=== PATIENT | male | born 1970 | race Caucasian/White ===

== ENCOUNTER 2020-12-07 16:00 | Outpatient (RCR) | payer OTHER, SELFPAY ==
--- NOTE | 2020-08-18 09:01 | HP.PTEVAL_ITS ---
Patient's Visit Information MARQUEZ ZELAYA is a 50 year old M referred to Physical Therapy by JOSE Berger with a diagnosis of RTC strain, adhesive capsulitis. Date of Evaluation: 08/18/20 Physical Therapist: Vinicio Hunt DPT - Visit Plan Frequency: 1-2x /Week Duration: 6 Weeks Plan: Start with joint mobs of GH with movement. Add in static stretching for HEP. Progress as tolerated. - Subjective Pt. is here today for his initial evaluation with diagnosis of L shoulder RTC sprain, adhesive capsulitis. Pain for ~1 month, no mech of injury. Pain with raising L arm out to side, and pushing off. Pt. did have a recent injection with reducing tin symptoms (severity). Pt. has difficulty with pushing off, raising his arm, lifting. Sleeping- painful with lying on L side. No N/T. Xrays negative for fracture. Pt. is hopeful to get back to playing soccer and ice hockey. 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 - Pain L shoulder Pain Intensity (Out of 10): 2 Pain Intensity Range: 2 - Objective POSTURE: pt. has slight FH posture and slight forward shoulder, bilaterally. + shrug signs. PALPATION: Pt. has tenderness at proximal biceps tendon, no soreness throughout RTC insertions. NEURO: Pt. has normal sensation and normal DTR of biceps and DTR of B UEs. ROM: R shoulder- full without increase in symptoms. L shoulder- flexion 125deg, abd 90deg., functional ER C1 very aberrant motion, functional IR L iliac crest. Painful and stiff with all motions. AROM: slightly better than all previous motions, but very tight with ER/IR motions. MMT: Pt. has 4+/5 strength throughout BUEs, increase in symptoms with speeds testing and weakness noted 3/5 (secondary to increased pain). SPECIAL TESTING: + hornblowers test, - Special Tests L Shoulder Biceps Load Test - Labrum: Positive L Shoulder Speeds Test - Labrum/Biceps: Positive L Shoulder Shrug Sign - OA/Adhesive Capsulitis: Positive - Goals Goal 1:: LTG: Pt to be I with HEP. Goal Time Frame: 4-6 Weeks Goal 2:: STG: pt. to have increased PROM by 25% in all directions. Goal Time Frame: 2-4 Weeks Goal 3:: LTG: Pt. to have increased AROM of L shoulder by 25% in all directions. Goal Time Frame: 4-6 Weeks Goal 4:: STG: Pt. to sleep throughout the night without increase in symptoms. Goal Time Frame: 2-4 Weeks Goal 5:: LTG: Pt. to resume playing soccer and recreational activities withotu increase in symptoms. Goal Time Frame: 4-6 Weeks - Rehabilitation Potential Physical Therapy Diagnosis: Pt. has signs and symptoms consistent with abhesive calsulitis. The special testing I did also suggested long head of biceps issues which may be the underlying issue. I will work on ROM, stretching in order to progress his ROM. Rehabilitation Potential: Good - Anticipated Interventions Patient/Client Instruction: Educate patient on: Condition, Plan of Care, Risk Factors, Benefits of Fitness Program For the Purpose of:: To improve decision making, To facilitate caregiver knowledge, To improve self management, To prevent re-injury, To improve ability to perform tasks related to life management, To improve tolerance to ADL's Therapeutic Exercise to Include: Strength training, Power training, Body mechanics, Postural training, Flexibilty training, Passive ROM, Active ROM, Scap ular Strength/Stabilization For the Purpose of:: To decrease pain, To decrease swelling/inflammation, To increase ROM, To improve nutrient delivery to tissue, To increase oxygenation perfusion, To improve muscle performance and motor function, To improve ability to perform ADL's Manual Therapy Techniques to Include: Mobilization, Passive ROM, Soft tissue mobilization For the Purpose of:: To decrease pain, To decrease swelling/inflammation, To increase ROM, To improve nutrient delivery to tissue, To increase oxygenation perfusion, To improve muscle performance and motor function Thank you for the opportunity to evaluate your patient. For Medicare and Medicare HMO plans, please review the plan of care and approve it. It will need to be FAXED BACK to us at [phone] for Medicare purposes. For Medicare only, by signing this I certify the plan of care. Please let me know if there are questions or concerns regarding this plan of care. Physician Signature: Date:
--- NOTE | 2020-10-02 09:50 | HP.PTREVAL ---
JOSE Berger, It has been my pleasure to treat MARQUEZ ZELAYA over the last 7 visits for RTC strain, adhesive capsulitis. Please see the progress note below for an update on the physical therapy plan of care! Subjective: Pt. reports overall he is doing better. He is still having some difficulty with reaching overhead and with behind his head and behind his back, but has improved since initial evaluation. Pt. reports no pain at rest today, but has 1-2/10 pain with attempts to reach behind his back and end range over his head. Objective/Function: ROM: L shoulder- AROM- flexion 150deg, abd 145deg, functional ER C 4 aberrant motion, functional IR L5. PROM- flexion 160deg, abd 155deg, ER at 90deg of abd 65deg, IR at 90deg of abd 30deg. His strength to good in mid ranges. 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 He does have pain with stressing to proximal biceps tendons, but able imrpoved with exercies adn with DFM. Plan Plan: I recommend that he continue PT x1 per week. He appears to have some bicpital tendonitis (proximal) and still have tighness throughout GH capsule. He is improving with end range stretching and GH glides. I would like to contiune to ever progressing in stress applied to stretching. Goals Goal 1:: LTG: Pt to be I with HEP. Goal Time Frame: 4-6 Weeks Goal Progress: Progressing Goal 2:: STG: pt. to have increased PROM by 25% in all directions. Goal Time Frame: 4-6 Weeks Goal Progress: Progressing Goal 3:: LTG: Pt. to have increased AROM of L shoulder by 25% in all directions. Goal Time Frame: 4-6 Weeks Goal Progress: Progressing Goal 4:: STG: Pt. to sleep throughout the night without increase in symptoms. Goal Time Frame: 2-4 Weeks Goal Progress: Goal Met Goal 5:: LTG: Pt. to resume playing soccer and recreational activities withotu increase in symptoms. Goal Time Frame: 4-6 Weeks Goal Progress: Progressing Anticipated Interventions Patient/Client Instruction: Educate patient on: Condition, Plan of Care, Risk Factors, Benefits of Fitness Program For the Purpose of:: To improve decision making, To facilitate caregiver knowledge, To improve self management, To prevent re-injury, To improve ability to perform tasks related to life management, To improve tolerance to ADL's Therapeutic Exercise to Include: Strength training, Power training, Body mechanics, Postural training, Flexibilty training, Passive ROM, Active ROM, Scapular Strength/Stabilization For the Purpose of:: To decrease pain, To decrease swelling/inflammation, To increase ROM, To improve nutrient delivery to tissue, To increase oxygenation perfusion, To improve muscle performance and motor function, To improve ability to perform ADL's Manual Therapy Techniques to Include: Mobilization, Passive ROM, Soft tissue mobilization For the Purpose of:: To decrease pain, To decrease swelling/inflammation, To increase ROM, To improve nutrient delivery to tissue, To increase oxygenation perfusion, To improve muscle performance and motor function Please do not hesitate to contact me at [phone] by phone or if you have questions or concerns regarding this new plan of care! Sincerely, Vinicio Hunt DPT
--- NOTE | 2020-12-08 07:43 | HP.PTREVAL ---
JOSE Berger, It has been my pleasure to treat MARQUEZ ZELAYA over the last 10 visits for RTC strain, adhesive capsulitis. Please see the progress note below for an update on the physical therapy plan of care! Subjective: Pt. reports he has been very busy with work and had to cancel a few of his appointments. Pt. reports he is still slowly getting better, but overall has seen good improvement. He denies N/T, but still is tight with OH motions and with functional IR. Objective/Function: AROM: L shoulder: flexion 155deg, abd 140deg, funtional ER C4 aberrant motion, functional IR L5 aberrant motion. PROM: L shoulder- flexion 160deg, abd 155deg, ER at 90deg- 79deg, IR at 90deg 45deg. Pt. still has a capsular patter with his ROM with a leathery end feel. he has been tolerating aggressive stretching and aggressive joint mobilizations. MMT 4+/5 throughout. Plan Plan: He continues to be limited with his L shoulder ROM, including OH and greatest with IR motions. I have been pretty aggressive with his stretching and including capsular stretching/joint mobs. He is miller helper distillery over her biceps tendon and anterior aspect of L shoulder. He has been given many stretching including sleeper stretching, end range flexion, abd and ER/IR stretching for HEP. Pt. to follow up with physician and determine if further PT or alternate path is needed. Goals Goal 1:: LTG: Pt to be I with HEP. Goal Time Frame: 4-6 Weeks Goal Progress: Goal Met Goal 2:: STG: pt. to have increased PROM by 25% in all directions. Goal Time Frame: 4-6 Weeks Goal Progress: Goal Met Goal 3:: LTG: Pt. to have increased AROM of L shoulder by 25% in all directions. Goal Time Frame: 4-6 Weeks Goal Progress: Goal Met Goal 4:: STG: Pt. to sleep throughout the night without increase in symptoms. Goal Time Frame: 2-4 Weeks Goal Progress: Goal Met Goal 5:: LTG: Pt. to resume playing soccer and recreational activities withotu increase in symptoms. Goal Time Frame: 4-6 Weeks Goal Progress: Progressing Anticipated Interventions Patient/Client Instruction: Educate patient on: Condition, Plan of Care, Risk Factors, Benefits of Fitness Program For the Purpose of:: To improve decision making, To facilitate caregiver knowledge, To improve self management, To prevent re-injury, To improve ability to perform tasks related to life management, To improve tolerance to ADL's Therapeutic Exercise to Include: Strength training, Power training, Body mechanics, Postural training, Flexibilty training, Passive ROM, Active ROM, Scapular Strength/Stabilization For the Purpose of:: To decrease pain, To decrease swelling/inflammation, To increase ROM, To improve nutrient delivery to tissue, To increase oxygenation perfusion, To improve muscle performance and motor function, To improve ability to perform ADL's Manual Therapy Techniques to Include: Mobilization, Passive ROM, Soft tissue mobilization For the Purpose of:: To decrease pain, To decrease swelling/inflammation, To increase ROM, To improve nutrient delivery to tissue, To increase oxygenation perfusion, To improve muscle performance and motor function Please do not hesitate to contact me at [phone] by phone or if you have questions or concerns regarding this new plan of care! Sincerely, Vinicio Hunt DPT
--- NOTE | 2021-02-08 16:49 | HP.PT.NRP ---
MARQUEZ ZELAYA was seen in my office for initial evaluation on 08/18/20. The following Plan of Care was established for this patient: Initial Frequency: 1-2x /Week Initial Duration: 6 Weeks Patient/Client Instruction: Educate patient on: Condition, Plan of Care, Risk Factors, Benefits of Fitness Program For the Purpose of:: To improve decision making, To facilitate caregiver knowledge, To improve self management, To prevent re-injury, To improve ability to perform tasks related to life management, To improve tolerance to ADL's Therapeutic Exercise to Include: Strength training, Power training, Body mechanics, Postural training, Flexibilty training, Passive ROM, Active ROM, Scapular Strength/Stabilization For the Purpose of:: To decrease pain, To decrease swelling/inflammation, To increase ROM, To improve nutrient delivery to tissue, To increase oxygenation perfusion, To improve muscle performance and motor function, To improve ability to perform ADL's Manual Therapy Techniques to Include: Mobilization, Passive ROM, Soft tissue mobilization For the Purpose of:: To decrease pain, To decrease swelling/inflammation, To increase ROM, To improve nutrient delivery to tissue, To increase oxygenation perfusion, To improve muscle performance and motor function This patient was last seen in our office 12/07/20. Pertinent comments regarding their Physical therapy will appear below: Pt. was seen in PT for his L shoulder. He was doing overall better, but has still having some soreness at the end ranges of motions. At hour last visit he was to follow back up with physician. He has not been seen in ~2 months and will be DC from PT at this point in time. At this point I will be discontinuing this patient from physical therapy. I would be happy to see this patient again in the future if found appropriate by the physician. Thank you! EFREN JohnsonT
== END 2020-12-07 19:00 | disposition home or self-care (01) ==
LOC: PT 16:00
PROVIDERS: PCP Family Medicine; Referring Provider Physician Assistant; Visit Provider Physician Assistant
DX: S43.422D Sprain of left rotator cuff capsule, subsequent encounter (principal); M75.02 Adhesive capsulitis of left shoulder; M75.52 Bursitis of left shoulder
CPT/HCPCS: 97110; 97140; 97161; 97164

== ENCOUNTER → 2021-07-14 10:37 | Outpatient (CLI) | payer OTHER, SELFPAY | PROVIDERS: PCP Family Medicine; Visit Provider Family Medicine | DX: Z23 Encounter for immunization (principal) | CPT/HCPCS: 0004A; 91300 ==

== ENCOUNTER 2023-05-16 09:06 | Emergency (ER) | payer OTHER, SELFPAY ==
[2023-05-16 09:07] VITALS: BP 148/96; PULSE 94; RESP 14; TEMP 36.4; O2SAT 98; BMI 30.4
--- NOTE | 2023-05-16 09:24 | EKG12_ITS ---
Test Reason : HIGH K Blood Pressure : / mmHG Vent. Rate : 089 BPM Atrial Rate : 089 BPM P-R Int : 146 ms QRS Dur : 070 ms QT Int : 338 ms P-R-T Axes : 061 082 034 degrees QTc Int : 411 ms Normal sinus rhythm Nonspecific T wave abnormality Abnormal ECG Confirmed by KEELEY SANTO, MELONIE ([id number]), pictures editor DANTE VENTURA ([id number]) on 05/18/2023 1:31:20 PM Referred By: Confirmed By:MELONIE MINA MD
--- NOTE | 2023-05-16 09:24 | EDS_ITS ---
HPI History of Present Illness Chief Complaint: Abn Labs Detail of Chief Complaint: Elevated potassium Informant: patient Narrative Narrative: Patient presents to the emergency department with concern for elevated potassium. Patient was started on blood pressure medicine recently lisinopril and had a 6-week checkup yesterday where he had some blood work. He was called today and told to come to the ER because his potassium was elevated at 6.1. Patient otherwise feels very well. He has never had problems with elevated potassium. He does not take potassium. Denies recent illness. PFSH PFSH Allergy/AdvReac Type Severity Reaction Status Date / Time No Known Allergies Allergy Verified 05/16/23 09:07 Social History Smoking Status: Never smoker ROS ROS ED ROS Narrative Elevated potassium Review of Systems ROS Unobtainable: other Constitutional Constitutional ED: Reports lethargy; Denies chills, fever(s), sweats or weight loss Eyes Eyes: Denies blurry vision, change in vision or diplopia ENT ENT ED: Denies rhinorrhea or sore throat Cardiovascular Cardiovascular: Denies chest pain, orthopnea or racing heartbeat Respiratory/Chest Respiratory/Chest: Denies cough, dyspnea, dyspnea on exertion, orthopnea or sputum Gastrointestinal Gastrointestinal: Denies abdominal pain, diarrhea, nausea or vomiting Genitourinary Genitourinary ED: Denies dysuria, hematuria or urinary frequency Musculoskeletal Musculoskeletal: Denies arthralgias, back pain, myalgias or neck pain Integumentary Denies abscess, Abrasions or rash Neurologic Neurologic: Denies headache(s) or weakness Psychiatric Psychiatric: Denies anxiety, depression or suicidal thoughts Endocrine Endocrinology: Denies polydipsia, polyphagia or polyuria Hematologic/Lymphatic Hematologic/Lymphatic: Denies easy bleeding, easy bruising or lymphadenopathy Allergic/Immunologic Allergic/Immunologic ED: Denies mouth swelling, tongue swelling or urticaria EXAM Physical Exam Const Vital Signs: 05/16/23 09:07 05/16/23 09:06 05/16/23 11:06 Temperature 97.6 F L 97.6 F L Temperature Source Temporal Pulse Rate 94 72 Respiratory Rate 14 14 Respiratory Effort Normal Respiratory Pattern Normal Blood Pressure 148/96 H 134/78 H Blood Pressure Mean 113 Pulse Ox 98 99 Oxygen Delivery Method Room Air Positive well nourished and well developed General Appearance ED: well developed and NAD HEENT Reports TM's clear and moist mucous membranes normocephalic and atraumatic; Negative for trauma or tenderness Tympanic Membrane ED: Yes TM's clear Eyes PERRL and EOMs intact bilaterally General Eye ED: Negative for pale conjunctiva or scleral icterus Neck no lymphadenopathy, supple and no JVD General: Negative for tenderness Chest Wall inspection of chest normal and palpation of chest normal Chest: Negative for tenderness Resp normal respiratory effort and clear to auscultation bilaterally Effort and Inspection: Negative for respiratory distress or pain with movement Auscultation: Negative for rhonchi, wheezes or diminished lung sounds Cardio regular rate, regular rhythm, S1 normal heart sound, S2 normal heart sound and no murmurs Peripheral Pulses: pulses 2+ throughout GI normal to inspection, nondistended, normoactive bowel sounds, soft to palpation, non-tender, non-distended and no masses Back/Spine no CVA tenderness and no thoracic nor lumbar tenderness Extremity normal to inspection General Extremety ED: Negative for edema General Extremity: Negative for edema Neuro oriented x3, CN's II-XII intact bilaterally, no sensory deficits noted and gait normal Sensorium / Orientation: awake, alert, oriented to person, oriented to place and oriented to time Motor Exam: strength 5/5 throughout and strength abnormal Psych mental status grossly normal Skin no rashes or lesions noted and no wounds MDM MDM MDM Narrative Medical decision making narrative: Presents with abnormal lab work that was done yesterday with concern for potassium of 6.1. We will repeat the potassium to document whether it is accurate versus hemolysis or lab error. I will obtain an EKG and place patient on a monitoring analyst. An EKG on arrival showed a sinus rhythm with a rate of [address] changes and no evidence for peaked T waves or hyperkalemia. Patient had a BMP that showed a potassium of 4.7. At this point I feel his elevated potassium is likely fictitious lab error or related to hemolysis. No further treatment required at this time as he feels well. We will attempt to contact his PCP to inform. Patient will be discharged to home Lab Data Attestation: I reviewed the patient's lab results. Labs: Laboratory Results - last 24 hr 05/16/23 09:40 Sodium 137 Potassium 4.7 Chloride 104 Carbon Dioxide 29.0 Anion Gap 4 L BUN 15 Creatinine 1.22 Estim Creat Clear Calc 57.96 Est GFR (MDRD) Af Amer 80 Est GFR (MDRD) Non-Af 66 BUN/Creatinine Ratio 12.3 Glucose 190 H Calcium 9.6 EKG Initial EKG: Attestation: I personally reviewed and interpreted this EKG as follows: Comments: Sinus rhythm with a rate of [address] changes without evidence of Discharge Plan Triage Chief Complaint: Abn Labs ED Provider: He Lockhart Dx/Rx/DC Orders Clinical Impression: Drug-induced hyperkalemia Instructions: ED Hyperkalemia Primary Care Provider: Jose Ayala Referrals: Jose Ayala MD [Primary Care Provider] - 3-5 Days Activity Restrictions/Additional Instructions: Potassium level was normal and I suspect the lab value from yesterday was likely lab error or related to hemolysis. Disposition Disposition: Home, Self Care Discharge Date/Time: 05/16/23 11:18
--- NOTE | 2023-05-16 09:26 | NURSING ---
NO OLD EKGS
[2023-05-16 09:59] LABS: Anion Gap 4 (5-15); BUN 15 mg/dL (7-18); BUN/Creat Ratio 12.3 RATIO (10-20); Calcium,Total 9.6 mg/dL (8.5-10.1); Chloride 104 mmol/L (98-107); Creatinine, Serum 1.22 mg/dL (0.70-1.30); EST Glomerular Filtration Rate 66 mL/min (>60); Est Glom Filt Rate - Afr Amer 80 mL/min (>60); Estimated Creatinine Clearance 57.96 ml/min; Glucose 190 mg/dL (74-106); Potassium 4.7 mmol/L (3.5-5.1); Sodium Level 137 mmol/L (136-145)
[2023-05-16 11:06] VITALS: BP 134/78; PULSE 72; RESP 14; TEMP 36.4; O2SAT 99
== END 2023-05-16 11:18 | disposition home or self-care (01) ==
PROVIDERS: Emergency Provider Emergency Medicine; PCP Family Medicine; Visit Provider Emergency Medicine
DX: E87.5 Hyperkalemia (principal)
CPT/HCPCS: 80048; 93005; 99284; A4216